=== PATIENT | female | born 1950 | race Caucasian/White ===

== ENCOUNTER → 2024-03-29 | Outpatient (CLI) | payer MEDICARE, SELFPAY ==
--- NOTE | 2024-03-29 11:33 | STRESSREP_ITS ---
Stress Test Report Date: 03/29/2024 Procedure: Exercise tolerance test Indications: Arrhythmia Consent: Per the patient Procedure: The patient exercised on a Royce protocol for 5 minutes achieving a peak heart rate of 176 bpm (120% predicted maximal heart rate) with a peak blood pressure 172/82 mmHg and a peak MET capacity of approximately 7.0 MET's. The baseline ECG demonstrated sinus rhythm with frequent PVCs. The peak exercise ECG demonstrated sinus tachycardia with rate related left bundle branch block. No PVCs noted at peak exercise. The functional capacity was considered average for age. The patient had no complaints of chest discomfort during exercise or recovery. The examination was discontinued secondary to target heart rate being achieved. Impression: 1. Technically adequate (percent predicted maximal heart rate greater than 85%) exercise tolerance test 2. Peak exercise ECG with rate related left bundle branch block. Resolved with heart rate recovery in recovery. 3. No PVCs noted with exercise. Frequent PVCs at baseline and in recovery. This note was generated with [employer] software. It may contain incorrect words, spelling, and punctuation that were not noted in checking the note before signing.
== END | disposition home or self-care (01) ==
LOC: CVS 09:56
PROVIDERS: PCP Nurse Practitioner Adult Health; Referring Provider Internal Medicine Cardiovascular Disease; Visit Provider Internal Medicine Cardiovascular Disease
DX: R94.31 Abnormal electrocardiogram [ECG] [EKG] (principal)
CPT/HCPCS: 93017